=== PATIENT | male | born 1985 | race Two or more races ===

== ENCOUNTER 2024-02-09 09:24 | Emergency (ER) | payer MEDICAID, OTHER ==
[~2024-02-09] VITALS: Ht 165.1 cm; Wt 86.5 kg
[2024-02-09 10:05] VITALS: BP 102/78; PULSE 72; RESP 16; TEMP 98.2; O2SAT 98
[2024-02-09] MEDS ORDERED: BENZ100C97 PO (10:43)
== END 2024-02-09 10:54 | disposition home or self-care (01) ==
LOC: ER 09:24
DX: J06.9 Acute upper respiratory infection, unspecified (principal)
CPT/HCPCS: 71046